=== PATIENT | female | born 1985 | race Caucasian/White ===

== ENCOUNTER 2019-01-04 14:06 | Emergency (ER) | payer MEDICAID ==
[~2019-01-04] VITALS: Ht 165.1 cm; Wt 114.3 kg
[2019-01-04 14:19] VITALS: Ht 165.1 cm; Wt 114.3 kg
[2019-01-04 14:56] LABS: BASOPHIL % 0.6 % (0-2); PLATELET COUNT 251 x10^3mcL (130-400)
[2019-01-04 15:04] LABS: RED CELL DISTRIBUTION WIDTH 14.8 % (11.5-14.5)
[2019-01-04 15:09] LABS: UA SPECIFIC GRAVITY 1.025 (1.005-1.035); microscopic required? YES; urine erythrocyte 3+ (NEGATIVE)
[2019-01-04 17:47] VITALS: BP 129/91
== END 2019-01-04 17:47 | disposition home or self-care (01) ==
LOC: ED 14:06
PROVIDERS: Emergency Medicine
DX: O20.0 Threatened abortion (principal); Z90.89 Acquired absence of other organs
CPT/HCPCS: 36415